=== PATIENT | male | born 1980 | race Hispanic/Latino ===

== ENCOUNTER 2017-11-08 17:53 | Day surgery (SDC) | payer OTHER, SELFPAY ==
[~2017-11-08 17:53] MED LIST: Lidocaine 1% PF 5 ML VIAL ONE; PHENYLEPHRINE-NS 100 MCG/ML 10 ML SYRINGE ONE; PROPOFOL 200 MG/20 ML VIAL ONE; Succinylcholine Chloride 20 MG/ML 10 ml SYRINGE FS ONE
[2017-11-08] MEDS ORDERED: Morphine 4 MG/ML VIAL ONE (18:22)
[2017-11-08] MEDS ORDERED: Ketorolac Tromethamine 30 MG/ML VIAL ONE (18:22)
[2017-11-08 18:32] LABS: #Eosinphils 0.1 thou/uL (0.0-0.7); #Lymphocytes 1.9 thou/uL (1.20-3.40); #Monocytes 0.5 thou/uL (0.11-0.59); #Neutrophils 6.6 thou/uL (1.40-6.50); %Basophils 0.5 % (0.0-1.0); %Eosinophils 0.8 % (0.0-10.0); %Lymphocytes 20.8 % (21.0-51.0); %Monocytes 5.4 % (0.0-10.0); %Neutrophils 72.5 % (42.0-75.0); Hemoglobin 15.7 g/dL (14.0-18.0); Mean Corpuscular HGB CONC 35.2 g/dL (32.0-36.0); Mean Corpuscular Hemoglobin 31.1 pg (27.0-31.0); Mean Corpuscular Volume 88.4 fL (78.0-98.0); Mean Platelet Volume 8.6 fL (7.4-10.4); Platelet Count 206 thou/uL (130-400); RBC Distribution Width 10.9 % (11.5-14.5); Red Blood Cell (RBC) Count 5.06 mill/uL (4.70-6.10); White Blood Cell (WBC) Count 9.1 thou/uL (4.8-10.8)
[2017-11-08 18:58] LABS: ALT (SGPT) 44 U/L (8-55); AST (SGOT) 25 U/L (5-34); Albumin 4.7 g/dL (3.5-5.0); Alkaline Phosphatase 104 U/L (40-150); Anion Gap 10 mmol/L (10-20); BUN (Urea Nitrogen) 21 mg/dL (8.9-20.6); Bilirubin, Total 1.1 mg/dL (0.2-1.2); Calc. Creatinine Clearance 0 mL/min (70-130); Calcium 9.7 mg/dL (7.8-10.44); Carbon Dioxide 28 mmol/L (22-29); Chloride 97 mmol/L (98-107); Estimated GFR-MDRD 49; Globulin 3.2 g/dL (2.4-3.5); Glucose 534 mg/dL (70-105); Magnesium 2.2 mg/dL (1.6-2.6); Potassium 4.2 mmol/L (3.5-5.1); Protein, Total 7.9 g/dL (6.0-8.3); Sodium 131 mmol/L (136-145)
[2017-11-08 19:03] LABS: Bilirubin Negative (Negative); Blood, Urine Negative (Negative); Clarity CLEAR (Clear); Glucose, Urine (Dipstick) >=1000 mg/dL (Negative); Leukocyte Negative (Negative); Nitrite Negative (Negative); Protein, Urine (Dipstick) Negative (Neg-Trace); Specific Gravity, Urine 1.043 (1.002-1.036); pH, Urine 5.5 (5.0-9.0)
[2017-11-08] MEDS ORDERED: CEFAZOLIN 1 GM VIAL ONE (19:31)
[2017-11-08] MEDS ORDERED: Bupivacaine/Epinephrine 0.25% 30 ML VIAL ONE (19:42)
[2017-11-08] MEDS ORDERED: Fentanyl 100 MCG/2 ML VIAL ONE ×2 (19:52)
[2017-11-08] MEDS ORDERED: Midazolam HCl 2 mg/2 ml Vial ONE (19:52)
--- NOTE | 2017-11-08 20:11 | ULT ---
SCROTAL ULTRASOUND 11/08/17 COMPARISON: None. HISTORY: Pain, trauma. TECHNIQUE: Multiplanar bae scale sonographic imaging of the scrotal contents obtained. Testicles are evaluated with color flow and spectral analysis. FINDINGS: the right testicle measures 2.5 x 4.5 x 2.6 cm and demonstrates normal blood flow without evidence fo r mass lesion. The scrotal wall is thickened and edematous diffusely, particularly on the left. There is no normal t esticular tissue seen in the left hemiscrotum. The left hemiscrotum is expanded and filled with heter ogeneously isoechoic/hyperechoic tissue. This likely represents a combination of shattered/ruptured t esticle and hematocele. Doppler interrogation in this region demonstrates scant areas of blood flow w hich may be within partially vascularized testicular tissue on the left. Doppler interrogation sugges ts that the majority of the left testicular tissue is devascularized. IMPRESSION: Findings suggesting a devascularized ruptured/shattered left testicle with expansion of the left dave scrotum and associated hematocele. Urology consultation advised. Dr. Glez made aware at 7:10 p.m., 11/08/17. Code CR POS: BERE
[2017-11-08] MEDS ORDERED: Bacitracin Zinc Ointment 30 gm TUBE ONE (21:31)
[2017-11-08] MEDS ORDERED: Ondansetron HCl/PF 4 MG/2 ML Vial ONE (22:19)
[2017-11-08] MEDS ORDERED: Promethazine HCl 25 MG/ML VIAL ONE (22:33)
--- NOTE | 2017-11-08 23:51 | HP ---
DATE OF ADMISSION: 11/08/2017 TIME: 08:14 p.m. CHIEF COMPLAINT: Testicle crush injury on left side. HISTORY OF PRESENT ILLNESS: Mr. 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 The chain broke and the chain ended up landing in the after school driver's compartment of the skid steer hitting him in the abdomen as well as the scrotum. The patient's left hemiscrotum received the bulk of the chain and this resulted in a crush injury and hematoma to the left hemiscrotum. This event occurred about 4:00 p.m. today at a job site in [place]. The patient was brought from [place] to the [facility] where I evaluated him. He did undergo ultrasound evaluation by the emergency room physicians prior to my evaluation of him as well as a formal ultrasound in Radiology. Ultrasound assessment shows a crushed LEFT testis with no apparent flow except in cord structures. The patient's right testis appears to be functional and viable with good perfusion. Initial assessment here is a crush injury to the left testis as well as injury to the groin area and abrasions to the lower abdomen.. The lower abdomen appears to have abrasions from the chain, but there does not appear to be any gross injury to the lower abdomen or hematoma. No CT scan imaging or other studies have been performed of the abdomen at this point. ALLERGIES: No known drug allergies. COMPLETE MEDICATION LIST: Includes metformin only. PAST MEDICAL HISTORY: Diabetes mellitus only. FAMILY MEDICAL HISTORY: Patient's mother is after complications from an ulcer surgery. Patient's father is still alive. There is no family history of diabetes mellitus except for the patient himself. SOCIAL HISTORY: The patient does not report any substance abuse issues. 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 PHYSICAL EXAMINATION: VITAL SIGNS: As per the ER sheet. He appears to be stable at the time of initial evaluation. GENERAL: This is a pleasant white male in no apparent distress. He is able to relate that he has testicular pain and lower abdominal discomfort which is just where the abrasions are from the chain. There is no gross bleeding at this time externally. HEAD, EYES, EARS, NOSE AND THROAT: Extraocular movements are intact. Sclerae are anicteric. There is no evidence of trauma to the head. EXTREMITIES: There are no extremity traumas. CHEST: Lungs clear to auscultation bilaterally. CARDIAC: Regular rate and rhythm without murmur, rub or gallop. BACK: No costovertebral angle tenderness, no point tenderness along the course of the spine. GENITOURINARY: The phallus is circumcised and is without lesion. Urethral meatus appears adequate. There is no contusion or evidence of blood clot on the penis itself. There is some tracking of hematoma into the base of the penis on the left side. Scrotal exam finds a normal nontender testis on the right side. Left hemiscrotum is completely filled with hematoma and is very tender. There is a bruised appearance to the scrotum on that side. There patient reports that he has voided twice since the accident, does not have any blood per urethra. Digital rectal examination is performed and finds a 30 gram prostate which is smooth, anodular, and nontender. There does not appear to be any tenderness to the pelvis itself on a rocking assessment of the pelvis. Ultrasound evaluation performed by radiology shows fractured left testis with essentially no blood flow visible in the left hemiscrotum. The testis appears to be completely fractured and does not appear viable based on ultrasound evaluation. Right hemiscrotum contains a normal appearing testis with normal blood flow. ASSESSMENT: Probable left testis fracture, crush injury with nonviability based on the ultrasound assessment by Doppler. Right testis appears normal. PLAN: The patient will be taken to the operating room for a left hemiscrotal exploration and probable left orchiectomy. I did discuss with the patient what his wishes were. He would prefer the left testis be saved that there is any chance of viability, I really doubt this at this point based on the ultrasound evaluation and clinical evaluation of the patient. We did discuss orchiectomy on the left side. I discussed with him that he could remain fertile and him have adequate testosterone production from a solitary testis. SALVADOR
--- NOTE | 2017-11-09 00:29 | OP ---
DATE OF PROCEDURE: 11/08/2017 DATE OF HOSPITAL ADMISSION: 11/08/2017 PREPROCEDURAL DIAGNOSIS: Crush injury of left testis and left hemiscrotum, S38.02XA. POSTPROCEDURAL DIAGNOSIS: Crush injury of left testis and left hemiscrotum, S38.02XA. PROCEDURES PERFORMED: 1. Left partial orchiectomy, 10992. 2. Cystourethroscopy, 15398. SURGEON: Braulio Rodríguez MD SPECIMENS REMOVED: 1. Part of the patient's left testis was removed for pathology. 2. Evacuated clot, not sent for pathology, total approximately 50 mL. ESTIMATED BLOOD LOSS: 5 mL due to surgery, 50 mL of evacuated clot was due to the patient's primary injury. OPERATIVE FINDINGS: Crush injury and hematoma within the left hemiscrotum with loss of viability of approximately 50% of the left testis, possibly all of the testis. BRIEF HISTORY: Mr. 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 The chain connecting the equipment to the skid steer broke and ended up landing in his lap in the skid steer. Apparently, this was a very heavy equipment. The chain struck him in the abdomen and in the scrotum with the bulk of the injury occurring to the left hemiscrotum. His left testis was crushed. The patient was evaluated in the emergency department, underwent an initial ultrasound by emergency room physician, Dr. Monroe, and subsequently brought in to Radiology Department for formal ultrasound. This showed minimal or no viability in the left hemiscrotum. There was some blood supply to what appeared to be cord structures or the epididymis. Essentially, no blood flow was observed within the left testis. The patient opted to proceed to the operating room, was fairly adamant about having his testis not completely removed. We discussed the viability of the tissue at this point would be poor. We did follow his guidance as he did want at least a trial at salvage of left testicle. The patient was admitted and subsequently transported to the operative suite after discussion of consent, and the patient assented and consented to procedures. DESCRIPTION OF PROCEDURE: The patient was appropriately identified in the emergency department and subsequently transported directly to the operative suite. General anesthesia was established using an endotracheal airway. The patient was prepped and draped in usual sterile fashion. Examination under anesthesia found the right testis feeling normal in shape and configuration, but displaced moderately due to large hematoma in the left hemiscrotum. The patient's phallus had some hematoma at the base. Urethral meatus was moderately smaller than normal. The left hemiscrotum was significantly enlarged and there was bruising and ecchymosis. The patient's abdomen had a large number of chain keenan for a large size chain abrading the abdomen along the rectus muscle belly on the left. There was no observed bleeding in the abdomen itself at the skin level. After induction of general anesthesia and sterile prep and drape, we made a midline hemiscrotal incision initially with a knife and subsequently carried down through the subcutaneous tissue using electrocautery. We entered the left hemiscrotum where a large clot of at least 50 mL was evacuated. Left testis was found crushed into 2 pieces with nonviability of a large portion of the left testis. This portion was removed and sent for pathology. We evaluated the remaining tissue and there seemed to be a small amount of blood supply to the remaining testicular tissue. We then following the partial orchiectomy performed closure of the remaining portion of the left testis using running 3-0 Vicryl suture. We left a number of small openings to allow for evacuation if there was additional bleeding. The testis was then pexed into a new dartos pocket created on the left hemiscrotal wall. There was a large amount of bruising and blood within the left hemiscrotal wall , some of which was evacuated in the course of this dartos pocket creation. 3- 0 Vicryl suture was again utilized to pex the testis. We utilized 3-point fixation to the left hemiscrotal wall. After this, we placed a Suzanna drain through a new stab incision in the lower left hemiscrotal wall. This was sutured into place using a #1 chromic gut suture. We then closed the dartos layer of the left hemiscrotum using a running 3-0 Vicryl suture. I then performed interrupted horizontal mattress sutures of either 0 chromic gut or of 2-0 chromic gut suture along the midline scrotal raphe. We then performed cystoscopy. A 15 Fr. ACMI flexible fiberoptic cystoscope was introduced per urethra. Te meatus and urethra to the fossa navicularis was narroed to about the scope diameter of 15 Fr. The pendulous, bulbar, and membranous urethra was free of injury. The sphincter was relaxed under the general anesthesia. The prostate was moderately enlarged. There was no evidence of injury. The bladder was panendoscopically evaluated and found to have no tumor lesion or stone. UO appeared orthotopic and effluxed concentrated but clear urine. Retroflex found an indentation in the base of the bladder due to the enlarged prostate. Trabeculation was stage 3 with saccules present. Pull back exam was unchanged with again no evidence of trauma seen. The scrotum was then again cleansed using peroxide. We placed Xeroform gauze and 4 x 4 dressings to the hemiscrotum. We then applied an athletic supporter. Wounds in the patient's abdomen were cleansed with peroxide and subsequently bacitracin ointment was placed. The patient tolerated the procedure well, was awakened and extubated in the operating room, was transported to postoperative recovery in good condition. SALVADOR
== END 2017-11-08 23:30 | disposition home or self-care (01) ==
LOC: ERS 17:53 → SDC/OP 20:15
PROVIDERS: ATTEND Urology
PROC: 0VBB0ZZ Excision of Left Testis, Open Approach (ICD-10-PCS; principal; 2017-11-08)
DX: S38.02XA Crushing injury of scrotum and testis, initial encounter (principal); E11.9 Type 2 diabetes mellitus without complications; Z79.84 Long term (current) use of oral hypoglycemic drugs; X58.XXXA Exposure to other specified factors, initial encounter
CPT/HCPCS: 36416; 76870; 80053; 81003; 83735; 85025; 93976; 96361; 96365; 96375; 96376; J0690; J1885; J2001; J2250; J2270; J2405; J2550; J2704; J3010